=== PATIENT | female | born 1965 | race Caucasian/White ===

== ENCOUNTER 2021-10-22 17:09 | Emergency (ER) | payer OTHER ==
--- NOTE | 2021-10-22 17:35 | NUR ---
pt was requesting to front staff that she does not feel comfortable being in the er and would like to be seen and evaluated in her car. the front staff informed pt that we are unable to accomidate, if pt feels uncomfortable waiting in lobby or tent, she may wait outside in one of the chairs. pt refused and began to get verbally aggressive. pt then began to record front staff on her phone and lwbs at this time. charge nurse informed on situation.
== END 2021-10-22 17:35 | disposition left against medical advice (07) ==
LOC: MED 17:09
DX: Z53.21 Procedure and treatment not carried out due to patient leaving prior to being seen by health care provider (principal)

== ENCOUNTER 2023-06-20 19:41 | Emergency (ER) | payer OTHER ==
[~2023-06-20] VITALS: Ht 167.6 cm; Wt 95.3 kg
[2023-06-20 20:00] VITALS: BP 170/94; PULSE 74; RESP 17; TEMP 97.8; O2SAT 99
[2023-06-20 22:32] VITALS: BP 170/94; PULSE 74; RESP 17; TEMP 97.8; O2SAT 99
== END 2023-06-20 22:32 | disposition home or self-care (01) ==
LOC: MED 19:41
DX: S90.32XA Contusion of left foot, initial encounter (principal); W18.09XA Striking against other object with subsequent fall, initial encounter; Y93.89 Activity, other specified; Y92.89 Other specified places as the place of occurrence of the external cause; Y99.8 Other external cause status
CPT/HCPCS: 73610; 73630; 99284; Q0092